=== PATIENT | female | born 1990 | race African-American/Black ===

== ENCOUNTER → 2016-12-11 | Outpatient (CLI) | payer BC ==
[~2016-12-11] MED LIST: cefTRIAXone IM 250 MG VIAL IM ONE
[2016-12-11 11:59] VITALS: BP 163/87
== END | disposition home or self-care (01) ==
LOC: OPS 11:33
PROVIDERS: ATTEND Obstetrics & Gynecology
DX: A54.9 Gonococcal infection, unspecified (principal)
CPT/HCPCS: 96372; J0696

== ENCOUNTER 2017-02-20 05:44 | Day surgery (SDC) | payer BC ==
[~2017-02-20] VITALS: Ht 167.6 cm; Wt 122.5 kg
[2017-02-20] MEDS ORDERED: LIDOCAINE 1%/EPI 1:100,000 20 ML VIAL. ONE (06:21)
[2017-02-20] MEDS ORDERED: FERRIC SUBSULFATE 8 ML SOL.W.APPL TP ONE (06:21)
[2017-02-20] MEDS ORDERED: HYDR12.53 PO (06:42)
[2017-02-20] MEDS ORDERED: PROCHLORPERAZINE 10 MG/2 ML VIAL. IV PRN (07:00)
[2017-02-20] MEDS ORDERED: fentaNYL PF VIAL 100 MCG/2 ML VIAL IV PRN ×2 (07:00)
[2017-02-20] MEDS ORDERED: HYDROmorphone 2 MG/ML VIAL IV PRN (07:00)
[2017-02-20] MEDS ORDERED: IV RINGERS,LACTATED 1000ML 1,000 ML IV SCH (07:00)
[2017-02-20] MEDS ORDERED: MORPHINE SULFATE 2 MG/ML DISP.SYRIN. IV PRN (07:00)
[2017-02-20] MEDS ORDERED: ONDANSETRON PF 4 MG/2 ML VIAL. IV PRN (07:00)
[2017-02-20] MEDS ORDERED: LIDOCAINE 1% PF 2 ML VIAL. ID PRN (07:00)
[2017-02-20] MEDS ORDERED: fentaNYL PF VIAL 100 MCG/2 ML VIAL ONE (07:52)
[2017-02-20] MEDS ORDERED: MIDAZOLAM HCL/PF 2 MG/2 ML VIAL. ONE (07:53)
[2017-02-20] MEDS ORDERED: PROPOFOL 20 ML IV ONE (07:54)
[2017-02-20] MEDS ORDERED: CLINDAMYCIN 900MG PREMIX 50 ML IV ONE (07:54)
[2017-02-20] MEDS ORDERED: DEXAMETHASONE SOD PHOS 20 MG/5 ML VIAL. ONE (07:55)
[2017-02-20] MEDS ORDERED: LIDOCAINE 2% PF Vial for OR 5 ML VIAL. ONE (07:55)
[2017-02-20] MEDS ORDERED: ONDANSETRON PF 4 MG/2 ML VIAL. ONE (07:55)
[2017-02-20] MEDS ORDERED: KETOROLAC 30 MG/ML INJ FOR OR. INJ ONE (08:19)
[2017-02-20] MEDS ORDERED: SEVOFLURANE 31 TO 60 MINUTES. IH ONE (08:28)
--- NOTE | 2017-02-20 08:28 | PDOC ---
BRIEF OPERATIVE NOTE Pre-Op Diagnosis GENOVEVA 1 Post-Op Diagnosis Same Procedure Performed Cervical Cone Bx Surgeon Dr. Seals Anesthesia Type: General Blood Loss less than 5 ml Specimens Obtained cervical cone bx Findings cervical dysplasia Complications none FAVIAN SEALS Jr, MD Feb 20, 2017 08:28
--- NOTE | 2017-02-20 08:29 | DISCH ---
DISCHARGE INSTRUCTIONS Condition on Discharge Condition on Discharge: Stable Activity After Discharge Activity Instructions for Disc: Activity as tolerated Lifting Instructions after Dis: No heavy lifting Driving Instructions after Dis: Do not drive today Diet after Discharge Diet after Discharge: Regular Contacting the DRGarcía after DC Call your doctor for: Concerns you may have Follow-Up Follow up with: Dr. Seals in 2 week. FAVIAN SEALS Jr, MD Feb 20, 2017 08:28
[2017-02-20] MEDS ORDERED: OXYC-323 PO (08:39)
[2017-02-20] MEDS ORDERED: oxyCODONE/APAP 5/325 1 TAB TABLET PO ONE ×2 (08:45)
--- NOTE | 2017-02-20 09:21 | OP ---
DATE OF SURGERY: 02/20/2017 DATE OF SERVICE: 02/20/2017 PREOPERATIVE DIAGNOSES: Cervical dysplasia/GENOVEVA 1. POSTOPERATIVE DIAGNOSIS: Cervical dysplasia/GENOVEVA 1. PROCEDURE: Cervical cone biopsy. SURGEON: Favian Seals MD ANESTHESIA: LMA. ESTIMATED BLOOD LOSS: 5 mL. COMPLICATIONS: None. FINDINGS: Cervical dysplasia. SUMMARY: A 27-year-old with GENOVEVA 1 required cervical cone biopsy. The patient was counseled on risks, benefits and expectations and voiced clear understanding to proceed. DESCRIPTION OF PROCEDURE: The patient was taken to surgery suite and placed in dorsal lithotomy position. She was prepped with Betadine solution for vaginal prep, draped in sterile fashion. After adequate anesthesia, weighted speculum was placed vaginally. Anterior lip of the cervix grasped with a single tooth tenaculum. Cervix was injected with 1% lidocaine with epinephrine in circumferential manner and 2-0 Vicryl sutures placed at the 3 o'clock and 9 o'clock position to stabilize the cervix. Cervical cone biopsy was performed with cold knife angled blade removing the anterior and posterior lip of the cervix. The remaining portion of the cervix cone was cauterized using Bovie cautery and Monsel solution was also applied for better hemostasis. The single tooth tenaculum was then removed as well as the weighted speculum. The patient tolerated the procedure well and was taken to recovery room in stable condition. Sponge and needle count correct x 3. FAVIAN SEALS MD DR: LESLIE/marko JOB#: [id number] / [id number]
[2017-02-20 09:34] LABS: NEG OBC UR NEG; POS OBC UR POS
[2017-02-20 09:47] VITALS: BP 135/77
== END 2017-02-20 09:53 | disposition home or self-care (01) ==
LOC: SURG 05:44
PROVIDERS: ATTEND Obstetrics & Gynecology
DX: N87.0 Mild cervical dysplasia (principal); I10 Essential (primary) hypertension; Z72.89 Other problems related to lifestyle; Z72.0 Tobacco use; Z88.0 Allergy status to penicillin
CPT/HCPCS: 57520; 81025; J1100; J1885; J2250; J2405; J2704; J3010; J3490; J2001

== ENCOUNTER → 2017-10-08 | Outpatient (CLI) | payer BC | END | disposition home or self-care (01) | LOC: US 07:01 | DX: N83.01 Follicular cyst of right ovary (principal) | CPT/HCPCS: 76856 ==

== ENCOUNTER → 2017-12-17 | Outpatient (CLI) | payer BC ==
[~2017-12-17] MED LIST changes: +HYDR12.53 PO; +OXYC-323 PO; -cefTRIAXone IM 250 MG VIAL IM ONE
--- NOTE | 2017-12-17 16:07 | RAD ---
Pelvic ultrasound, 12/17/2017: HISTORY: Follow-up ovarian cyst. Transabdominal scans were obtained and compared to a study from 10/08/2017. The uterus is within normal limits in size. A normal thin central uterine echo is faintly visible. No uterine abnormality is seen. The ovaries are within normal limits in size. The small cyst seen in the right ovary on the previous study is less clearly defined on today's images. It may be slightly smaller measuring 2.2 cm on today's study. The patient declined transvaginal scanning which would have better demonstrated the ovary. The adnexal structures are otherwise unremarkable. No free fluid is evident in the pelvis. IMPRESSION: 1. Probable small follicular cyst in the right ovary, suboptimally demonstrated as described above. 2. No new abnormality is detected. Electronically signed by: Connor Pace MD (12/17/2017 4:04 PM) [facility]
== END | disposition home or self-care (01) ==
LOC: US 10:07
PROVIDERS: ATTEND Obstetrics & Gynecology
DX: N83.01 Follicular cyst of right ovary (principal); I10 Essential (primary) hypertension; Z88.0 Allergy status to penicillin
CPT/HCPCS: 76830; 76856

== ENCOUNTER 2018-10-23 20:18 | Emergency (ER) | payer BC, OTHER ==
[~2018-10-23] VITALS: Ht 167.6 cm; Wt 129.3 kg
[~2018-10-23 20:18] MED LIST changes: -HYDR12.53 PO; +HYDR12.575 PO; -OXYC-323 PO; +OXYC1TAB15 PO
[2018-10-23 20:37] VITALS: BP 136/88
--- NOTE | 2018-10-23 22:00 | RAD ---
Right ankle x-rays 3 views HISTORY: Increasing right posterior ankle pain, history of Achilles tendon repair. FINDINGS: Small chronic ossicle lateral ankle below the lateral malleolus. Tiny os peroneus. No fracture or dislocation. Thickening of the Achilles tendon likely due to tendinopathy, tendon tear, or due to prior surgical repair. IMPRESSION: Abnormal thickening of the Achilles tendon as described above. No acute osseous injury. Electronically signed by: Rusty Ragland MD (10/23/2018 9:57 PM) [facility]
[2018-10-23] MEDS ORDERED: NAPR-683 PO (22:43)
--- NOTE | 2018-10-23 22:43 | PHYS DOC ---
Past Medical History Past Medical History: Hypertension (HAYDE GRIGSBY APRN) Additional Past Surgical Histo: RIGHT ANKLE SURGERY (HAYDE GRIGSBY APRN) Alcohol Use: Occasionally Drug Use: Marijuana (HAYDE GRIGSBY APRN) Adult General Chief Complaint Chief Complaint: LOWER EXT PAIN [facility] HPI Patient is a 28 year old female presents for evaluation of pain and swelling to the right ankle. She reports a Achilles tendon repair one year ago, she states is always remained swollen but is becoming more tender recently. She has an appointment this coming up Friday with the surgeon who did the previous surgery. She denies other concerns. Recent injuries or falls. She also complains of some tingling in her right hand. She noticed this started today. (HAYDE GRIGSBY APRN) Review of Systems Review of Systems Constitutional: Denies fever or chills [] Eyes: Denies change in visual acuity, redness, or eye pain [] HENT: Denies nasal congestion or sore throat [] Respiratory: Denies cough or shortness of breath [] Cardiovascular: No additional information not addressed in HPI [] GI: Denies abdominal pain, nausea, vomiting, bloody stools or diarrhea [] : Denies dysuria or hematuria [] Musculoskeletal: Right ankle pain[] Integument: Denies rash or skin lesions [] Neurologic: Denies headache, focal weakness or sensory changes [] Endocrine: Denies polyuria or polydipsia [] All other systems were reviewed and found to be within normal limits, except as documented in this note. (HAYDE GRIGSBY APRN) Allergies Allergies Allergies Coded Allergies Type Severity Reaction Last Updated Verified Penicillins Allergy Intermediate 02/20/17 Yes (CAROLYN BURNHAM DO) Physical Exam Physical Exam Constitutional: Well developed, well nourished, no acute distress, non-toxic appearance. [] Skin: Warm, dry, no erythema, no rash. [] Back: No tenderness, no CVA tenderness. 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 [] Psychologic: Affect normal, judgement normal, mood normal. [] (HAYDE GRIGSBY APRN) Physical Exam Constitutional: Well developed, well nourished, no acute distress, non-toxic appearance Skin: Warm, dry, no erythema, no rash Extremities: No deformity, R achilles intact, R ankle edema/tenderness on palpation Neurologic: Alert and oriented X 3, no focal deficits noted (CAROLYN BURNHAM DO) Current Patient Data Vital Signs Vital Signs Date Time Temp Pulse Resp B/P (MAP) Pulse Ox O2 Delivery O2 Flow Rate FiO2 10/23/18 20:37 98.2 110 18 136/88 (104) 98 Room Air 98.2 (CAROLYN BURNHAM DO) EKG EKG [] (HAYDE GRIGSBY APRN) Radiology/Procedures Radiology/Procedures [] (HAYDE GRIGSBY APRN) Impressions: REASON: HX ACHILLES REPAIR 1 YEAR AGO, INCR PAIN PROCEDURE: ANKLE RIGHT 3V Right ankle x-rays 3 views HISTORY: Increasing right posterior ankle pain, history of Achilles tendon repair. FINDINGS: Small chronic ossicle lateral ankle below the lateral malleolus. Tiny os peroneus. No fracture or dislocation. Thickening of the Achilles tendon likely due to tendinopathy, tendon tear, or due to prior surgical repair. IMPRESSION: Abnormal thickening of the Achilles tendon as described above. No acute osseous injury. Electronically signed by: Rusty Ragland MD (10/23/2018 9:57 PM) [facility] (HAYDE GRIGSBY APRN) Course & Med Decision Making Course & Med Decision Making Pertinent Labs and Imaging studies reviewed. (See chart for details) []Splint Assessment: Neurovascularly intact post splint placement with good fit. Patient was placed in an Abdiel wrap, she has a walking boot at home, she will start using the walking boot until her appointment on Friday. Recommend she ice and elevate the extremity, prescription for naproxen. (HAYDE GRIGSBY APRN) Dragon Disclaimer Dragon Disclaimer This electronic medical record was generated, in whole or in part, using a voice recognition dictation system. (HAYDE GRIGSBY APRN) Departure Departure Impression: Primary Impression: Achilles tendon pain Additional Impression: Paresthesias Disposition: HOME, SELF-CARE Condition: STABLE Referrals: NO PCP (PCP) Patient Instructions: Achilles Tendinitis, Paresthesia, [id number] Scripts Naproxen (NAPROSYN) 500 Mg Tablet 500 MG PO BID, #20 TAB Prov: HAYDE GRIGSBY APRN 10/23/18 Attending Signature Attending Signature I have personally interviewed and examined the patient. All charts, labs, and imaging studies were reviewed. I agree with the PA/ELECTRIC METER READER's findings, exam, and plan. (CAROLYN BURNHAM DO) Problem Qualifiers HAYDE GRIGSBY APRN Oct 23, 2018 22:43 CAROLYN BURNHAM DO Oct 26, 2018 17:59
== END 2018-10-23 23:00 | disposition home or self-care (01) ==
LOC: ER 20:18
DX: M76.61 Achilles tendinitis, right leg (principal); R20.2 Paresthesia of skin; I10 Essential (primary) hypertension; Z88.0 Allergy status to penicillin
CPT/HCPCS: 73610; 99284

== ENCOUNTER → 2019-05-06 | Outpatient (CLI) | payer OTHER ==
[~2019-05-06] MED LIST changes: +NAPR-683 PO
== END | disposition home or self-care (01) ==
LOC: LAB 15:06
PROVIDERS: ATTEND Obstetrics & Gynecology
DX: Z01.419 Encounter for gynecological examination (general) (routine) without abnormal findings (principal)
CPT/HCPCS: 36415; 86592; 86703

== ENCOUNTER → 2019-09-21 | Outpatient (CLI) | payer OTHER ==
[2019-09-21 12:49] LABS: BASO # 0.1 x10^3/uL (0.0-0.2); BASO % 1 % (0-3); EOS # 0.2 x10^3/uL (0.0-0.7); EOS % 2 % (0-3); HEMATOCRIT 36.2 % (36.0-47.0); HEMOGLOBIN 12.4 g/dL (12.0-15.5); LYMPH # 4.1 x10^3/uL (1.0-4.8); LYMPH % 41 % (24-48); MEAN CORPUSCULAR HEMOGLOBIN 33 pg (25-35); MEAN CORPUSCULAR HGB CONC 34 g/dL (31-37); MEAN CORPUSCULAR VOLUME 96 fL (79-100); MONO # 0.5 x10^3/uL (0.0-1.1); MONO % 5 % (0-9); NEUT # 5.1 x10^3/uL (1.8-7.7); NEUT % 51 % (31-73); PLATELET COUNT 327 x10^3/uL (140-400); RED BLOOD COUNT 3.77 x10^6/uL (3.50-5.40); RED CELL DISTRIBUTION WIDTH 13.3 % (11.5-14.5); WHITE BLOOD COUNT 10.1 x10^3/uL (4.0-11.0)
[2019-09-21 13:21] LABS: FREE T4 1.16 ng/dL (0.76-1.46); THYROID STIM HORMONE (TSH) 1.769 uIU/mL (0.358-3.74)
== END | disposition home or self-care (01) ==
LOC: LAB 12:14
PROVIDERS: ATTEND Obstetrics & Gynecology
DX: Z01.411 Encounter for gynecological examination (general) (routine) with abnormal findings (principal); Z20.2 Contact with and (suspected) exposure to infections with a predominantly sexual mode of transmission; N93.8 Other specified abnormal uterine and vaginal bleeding
CPT/HCPCS: 36415; 84439; 84443; 85025; 86592; 86703